=== PATIENT | female | born 1955 | race Caucasian/White ===

== ENCOUNTER 2019-09-15 13:13 | Outpatient (CLI) | payer OTHER, SELFPAY ==
--- NOTE | 2019-09-15 13:15 | XR_ITS ---
WS: [id number] XR tibia fibula RT 2V [id number] REASON FOR EXAM: right leg pain FINDINGS: Tibia-fibula appear to be normal. No fractures or other dyscrasias. No unusual soft tissue masses or calcifications. XR/XR tibia fibula RT 2V [id number] IMPRESSION: Negative tibia-fibula study
== END 2019-09-15 13:14 | disposition home or self-care (01) ==
LOC: RAD 13:13
PROVIDERS: PCP Nurse Practitioner Family; Visit Provider Nurse Practitioner Family
DX: M79.604 Pain in right leg (principal)
CPT/HCPCS: 73590